=== PATIENT | male | born 1960 | race Caucasian/White ===

== ENCOUNTER 2023-10-03 10:42 | Day surgery (SDC) | payer MEDICAID ==
[2023-09-30 11:28] LABS: BASOPHILS # (AUTO) 0.1 X10'3 (0-0.2); BASOPHILS % (AUTO) 1.2 % (0-1); EOSINOPHILS # (AUTO) 0.1 X10'3 (0-0.9); EOSINOPHILS % (AUTO) 1.1 % (0-6); LYMPHOCYTES # (AUTO) 1.7 X10'3 (1.1-4.8); LYMPHOCYTES % (AUTO) 20.1 % (21-51); MEAN CORPUSCULAR HEMOGLOBIN 30.1 PG (27.0-31.0); MEAN CORPUSCULAR HGB CONC 33.5 g/dL (33.0-36.5); MEAN CORPUSCULAR VOLUME 89.8 FL (78-98); MEAN PLATELET VOLUME 6.4 FL (7.4-10.4); MONOCYTES % (AUTO) 11.1 % (2-12); NEUTROPHILS # (AUTO) 5.8 X10'3 (1.8-7.7); NEUTROPHILS % (AUTO) 66.5 % (42-75); PRE OP HEMATOCRIT 45.2 % (42.0-52.0); PRE OP HEMOGLOBIN 15.1 g/dL (14.0-17.9); PRE OP PLATELET COUNT 389 X10'3 (140-440); PRE OP WHITE BLOOD COUNT 8.7 10'3 (4.8-10.8); RED BLOOD COUNT 5.04 X10'6 (4.70-6.10); RED CELL DISTRIBUTION WIDTH 14.5 % (11.5-14.5)
[2023-09-30 12:01] LABS: ALBUMIN 3.9 G/DL (3.4-5.0); ALKALINE PHOSPHATASE 48 IU/L (46-116); BLOOD UREA NITROGEN 8 MG/DL (7-18); BUN/CREATININE RATIO 11.3 (10.0-20.0); CALCIUM 9.2 MG/DL (8.5-10.1); CHLORIDE 105 MMOL/L (99-107); CREATININE 0.71 MG/DL (0.60-1.10); PRE OP ALT 27 U/L (30-65); PRE OP ANION GAP 10 (8-16); PRE OP AST 26 U/L (10-37); PRE OP BILIRUB, TOTAL 1.3 MG/DL (0.0-1.0); PRE OP GLUCOSE 116 MG/DL (70-104); PRE OP POTASSIUM 4.1 MMOL/L (3.4-5.1); PRE OP SODIUM 141 MMOL/L (135-145); TOTAL PROTEIN 7.7 G/DL (6.4-8.2); eGFR > 90 ML/MIN
[2023-10-03] VITALS (7 sets, daily range): BP systolic 112–121; BP diastolic 81–89; PULSE 88–95; RESP 14–20; TEMP 98.6; O2SAT 94–99
[~2023-10-03] VITALS: Ht 170.2 cm; Wt 60.7 kg
[~2023-10-03 10:42] MED LIST: ALBU8HFA INH; BUDE10.2 INH; TIOT4MIS2 INH; albuterol 2.5 MG/3 ML nebule NEB PRN
[2023-10-03] MEDS: famotidine 20mg tablet PO ONE (11:34)
[2023-10-03] MEDS: ringers solution, lacted 1,000 ML IV SCH (11:34)
[2023-10-03] MEDS ORDERED: sevoflurane 250ml liquid IH ONE (12:01)
[2023-10-03] MEDS ORDERED: fentaNYL/PF 50MCG/1 ML 2ML syringe ONE (12:01)
[2023-10-03] MEDS ORDERED: midazolam 1 mg/ML 2ml injection ONE (12:02)
[2023-10-03] MEDS ORDERED: propofol inj 20 ML IV ONE (12:02)
[2023-10-03] MEDS ORDERED: rocuronium 10mg/ml inj IV ONE (12:02)
[2023-10-03] MEDS ORDERED: ringers solution, lacted 1,000 ML IV SCH (12:50)
[2023-10-03] MEDS ORDERED: morphine 2 MG/ML inj. syringe IV PRN (12:50)
[2023-10-03] MEDS ORDERED: morphine 4 MG/ML inj SYRINge IV PRN (12:50)
[2023-10-03] MEDS ORDERED: ondansetron/PF 4mg/2ml inj IV PRN (12:50)
[2023-10-03] MEDS ORDERED: meperidine/PF 25mg/ml syringe IV PRN ×3 (12:50)
[2023-10-03] MEDS ORDERED: dexamethasone sod phosphate 4mg/ml inj. ONE (13:11)
[2023-10-03] MEDS ORDERED: neostigmine methylsulfate 1 MG/ML 10ml vial ONE (13:11)
[2023-10-03] MEDS ORDERED: glycopyrrolate 0.2mg/ml inj ONE (13:12)
[2023-10-03] MEDS ORDERED: ondansetron/PF 4mg/2ml inj ONE (13:12)
[2023-10-04] MEDS ORDERED: DOXY100C43 PO (10:25)
== END 2023-10-03 14:15 | disposition home or self-care (01) ==
LOC: PAS 10:42
PROVIDERS: ATTEND Internal Medicine Critical Care Medicine
DX: R91.8 Other nonspecific abnormal finding of lung field (principal); J43.9 Emphysema, unspecified; F41.9 Anxiety disorder, unspecified; Z85.46 Personal history of malignant neoplasm of prostate; Z98.890 Other specified postprocedural states; Z87.891 Personal history of nicotine dependence; Z79.899 Other long term (current) drug therapy; Z80.1 Family history of malignant neoplasm of trachea, bronchus and lung
CPT/HCPCS: 31628; 31629; 31652; 36415; 71045; 71250; 80053; 82948; 85025; 87015; 87070; 87102; 87116; 87206; 93005; 94760; J1100; J2250; J2405; J2704; J2710; J3010; J3490; J7120; Z7506; Z7508; Z7512; 31622; 31624; 31625; 31626; 31627; 31653; 31654; A4615; A4618

== ENCOUNTER 2023-10-04 09:29 | Emergency (ER) | payer MEDICAID ==
[~2023-10-04] VITALS: Ht 170.2 cm; Wt 62.4 kg
[~2023-10-04 09:29] MED LIST changes: -albuterol 2.5 MG/3 ML nebule NEB PRN
[2023-10-04] MEDS ORDERED: DOXY100C43 PO (10:25)
[2023-10-04 11:15] VITALS: BP 122/80; PULSE 78; RESP 16; TEMP 97.7; O2SAT 99
== END 2023-10-04 11:16 | disposition home or self-care (01) ==
LOC: ER 09:30
DX: J20.9 Acute bronchitis, unspecified (principal); Z79.899 Other long term (current) drug therapy
CPT/HCPCS: 71046; 99283

== ENCOUNTER 2023-11-03 22:32 | Emergency (ER) | payer MEDICAID ==
[~2023-11-03] VITALS: Ht 170.2 cm; Wt 61.4 kg
[2023-11-03 22:54] LABS: BASOPHILS % (AUTO) 0.4 % (0-1); EOSINOPHILS # (AUTO) 0.7 X10'3 (0-0.9); EOSINOPHILS % (AUTO) 5.4 % (0-6); HEMATOCRIT 43.1 % (42.0-52.0); HEMOGLOBIN 14.2 g/dl (14.0-17.9); LYMPHOCYTES # (AUTO) 1.8 X10'3 (1.1-4.8); LYMPHOCYTES % (AUTO) 14.2 % (21-51); MEAN CORPUSCULAR HEMOGLOBIN 29.5 PG (27.0-31.0); MEAN CORPUSCULAR HGB CONC 32.9 g/dL (33.0-36.5); MEAN CORPUSCULAR VOLUME 89.7 FL (78-98); MEAN PLATELET VOLUME 6.3 FL (7.4-10.4); MONOCYTES # (AUTO) 1.3 X10'3 (0-0.9); MONOCYTES % (AUTO) 10.1 % (2-12); NEUTROPHILS # (AUTO) 8.9 X10'3 (1.8-7.7); NEUTROPHILS % (AUTO) 69.9 % (42-75); PLATELET COUNT 345 X10'3 (140-440); RED BLOOD COUNT 4.81 X10'6 (4.70-6.10); RED CELL DISTRIBUTION WIDTH 13.9 % (11.5-14.5); WHITE BLOOD COUNT 12.8 X10'3 (4.5-11.0)
[2023-11-03 23:17] LABS: ALANINE AMINOTRANSFERASE 57 U/L (12-78); ALBUMIN 2.9 G/DL (3.4-5.0); ALBUMIN/GLOBULIN RATIO 0.7 (1.1-1.5); ALKALINE PHOSPHATASE 80 IU/L (46-116); ANION GAP 8 (8-16); ASPARTATE AMINO TRANSFERASE 47 U/L (10-37); BILIRUBIN,TOTAL 0.8 MG/DL (0.1-1.0); BLOOD UREA NITROGEN 10 MG/DL (7-18); BUN/CREATININE RATIO 11.5 (10.0-20.0); CALCIUM 8.5 MG/DL (8.5-10.1); CHLORIDE 103 MMOL/L (99-107); CREATININE 0.87 MG/DL (0.60-1.10); GLUCOSE 153 MG/DL (70-104); POTASSIUM 3.6 MMOL/L (3.5-5.1); SODIUM 139 MMOL/L (135-145); TOTAL CARBON DIOXIDE 28.3 MMOL/L (24-32); eCRCL 76 ML/MIN; eGFR 89 ML/MIN
[2023-11-04 00:01] LABS: PROTHROMBIN TIME 10.3 SECONDS (9.0-12.0)
[2023-11-04] MEDS ORDERED: ceFAZolin 1000mg inj IV STA (00:39)
[2023-11-04] MEDS: cefazolin 2gm/D5W 100mL 100 ML IV ONE (01:16)
[2023-11-04 01:45] VITALS: BP 115/82; PULSE 93; RESP 19; TEMP 98.3; O2SAT 95
== END 2023-11-04 01:46 | disposition home or self-care (01) ==
LOC: ER 22:33
DX: L76.22 Postprocedural hemorrhage of skin and subcutaneous tissue following other procedure (principal); J34.9 Unspecified disorder of nose and nasal sinuses
CPT/HCPCS: 36415; 71045; 80053; 85025; 85610; 96365; 99284; J0690

== ENCOUNTER 2024-06-28 05:24 | Emergency (ER) | payer MEDICAID ==
[~2024-06-28] VITALS: Ht 170.2 cm; Wt 70.8 kg
[2024-06-28] MEDS ORDERED: AZIT-164 PO (05:32)
[2024-06-28] MEDS ORDERED: PRED20TA PO (05:32)
[2024-06-28] MEDS: azithromycin 250mg tablet PO ONE (05:54)
[2024-06-28] MEDS: predniSONE 20 mg tablet PO ONE (05:54)
[2024-06-28 06:01] VITALS: BP 119/86; PULSE 97; RESP 16; TEMP 98.4; O2SAT 94
== END 2024-06-28 06:03 | disposition home or self-care (01) ==
LOC: ER 05:24
DX: J20.9 Acute bronchitis, unspecified (principal); J43.9 Emphysema, unspecified; F17.200 Nicotine dependence, unspecified, uncomplicated; Z79.2 Long term (current) use of antibiotics; Z79.899 Other long term (current) drug therapy
CPT/HCPCS: 99283; J7512

== ENCOUNTER 2025-05-26 11:11 | Emergency (ER) | payer MEDICAID ==
[~2025-05-26] VITALS: Ht 170.2 cm; Wt 71.9 kg
[2025-05-26 11:18] VITALS: BP 121/84; PULSE 98; RESP 18; TEMP 97.2; O2SAT 98
[2025-05-26 12:15] LABS: MEAN PLATELET VOLUME 6.3 FL (7.4-10.4); RED CELL DISTRIBUTION WIDTH 13.7 % (11.5-14.5)
[2025-05-26 12:34] LABS: CREATININE 0.89 MG/DL (0.60-1.10); TOTAL CARBON DIOXIDE 26.2 MMOL/L (24-32); eCRCL 78 ML/MIN; eGFR 86 ML/MIN
--- NOTE | 2025-05-26 16:10 | Physician Documentation ---
History of Present Illness ~ Chief Complaint: Blood in Urine Stated Complaint: BLOOD IN URINE Primary Medical Doctor: Nuvia Wright [facility] This is a 64-year-old male with past history of kidney stones presents to the emergency department due to concern for a single episode of bright red blood in his urine this morning, patient reports that subsequent episodes of urination had a pink tinge to it though he has urinated twice without any blood or pink tinge prior to arrival. Patient reports no pain with urination and no abdominal or flank pain. Patient reports no other acute symptoms or concerns including fever. Medication Reconciliation Allergies: Coded Allergies: No Known Allergies (Unverified , 05/26/25) Scheduled Budesonide/Formoterol Fumarate (Symbicort 160-4.5 Mcg Inhaler), 2 PUFF INH BID, (Reported) Tiotropium [place] (Spiriva Respimat), 2 PUFFS INH DAILY, (Reported) Scheduled PRN albuterol inhaler (Pro-Air Inhaler), 2 PUFFS INH Q4HPRN PRN for wheezing, (Reported) Past Medical History Past Medical History: Bronchitis, Emphysema Past Surgical History: noncontributory Lives In: Home Review of Systems ROS As stated above in the HPI, otherwise all systems are reviewed and negative. Physical Exam Vital Signs: Temperature: 97.2, Heart Rate: 98, Respiratory Rate: 18, BP: 121/84, Pulse Oximetry: 98, Weight: 71.900 Oxygen Flow Rate: 0 Physical Exam VITALS: Reviewed and as above. GENERAL: Alert, nontoxic appearing, no apparent distress. RESPIRATORY: No increased work of breathing, no respiratory distress, speaking in full clear sentences Progress Results/Orders Results/Orders Vital Signs 05/26/25 11:18 Temp 97.2 Pulse 98 Resp 18 B/P (MAP) 121/84 Pulse Ox 98 O2 Flow Rate 0 Laboratory Tests Test 05/26/25 12:07 White Blood Count 7.7 Red Blood Count 4.98 Hemoglobin 14.9 Hematocrit 44.9 Mean Corpuscular Volume 90.2 Mean Corpuscular Hemoglobin 30.0 Mean Corpuscular Hemoglobin Concent 33.3 Red Cell Distribution Width 13.7 Platelet Count 350 Mean Platelet Volume 6.3 L Neutrophils (%) (Auto) 64.6 Lymphocytes (%) (Auto) 22.9 Monocytes (%) (Auto) 9.3 Eosinophils (%) (Auto) 2.4 Basophils (%) (Auto) 0.8 Neutrophils # (Auto) 5.0 Lymphocytes # (Auto) 1.8 Monocytes # (Auto) 0.7 Eosinophils # (Auto) 0.2 Basophils # (Auto) 0.1 CBC Comment Sodium Level 143 Potassium Level 4.2 Chloride Level 108 H Carbon Dioxide Level 26.2 Anion Gap 9 Blood Urea Nitrogen 15 Creatinine 0.89 Estimated GFR/1.73 m2 86 BUN/Creatinine Ratio 16.9 Glucose Level 96 Calcium Level 9.0 Total Bilirubin 1.1 H Aspartate Amino Transf (AST/SGOT) 29 Alanine Aminotransferase (ALT/SGPT) 30 Alkaline Phosphatase 60 Total Protein 7.6 Albumin 4.0 Globulin 3.6 Albumin/Globulin Ratio 1.1 Chemistry Comments Medical Decision Making Findings This 64-year-old male with a history of kidney stones presented with a single episode of kimberly blood in urine that has resolved, patient reported no pain associated with urination including no flank pain or abdominal pain. I suspect the cause of kimberly blood in urine was most likely passing a kidney stone. MSE performed in triage and patient returned to ED lobby by nursing staff to await available ED room. Lab work initiated including urinalysis. Patient appears to have eloped from lobby. Urinary Diff Dx:Considerations: Include: Pyelonephritis, Renal failure, Renal infarction, Urolithiasis, Urinary Obstruction, Urethritis, Urinary retention, UTI, Other (Malignancy) Genital Diff Dx:Considerations: Include: Torsion-epididymis, Torsion- appendiceal, Urethritis, Urethritis-chlamydial, Urethritis-gonococcal, UTI Departure Disposition: LEFT AWOL/ELOPED Impression: Primary Impression: Hematuria Qualified Codes: R31.9 - Hematuria, unspecified Referrals: NO PRIMARY CARE PROVIDER (PCP) Signature Scribe Signature: No scribe Attestation: The note accurately reflects work and decisions made by me.ADAL Pang 1 16:11 ROSELIA CASTILLO May 26, 2025 16:10
== END 2025-05-26 16:20 | disposition left against medical advice (07) ==
LOC: ER 11:11
DX: R31.9 Hematuria, unspecified (principal); J43.9 Emphysema, unspecified
CPT/HCPCS: 36415; 80053; 85025; 99283